=== PATIENT | male | born 1995 | race Caucasian/White ===

== ENCOUNTER 2018-05-10 18:05 | Emergency (ER) | payer SELFPAY ==
[2018-05-10 18:23] VITALS: BP 134/60
--- NOTE | 2018-05-10 19:02 | UC ---
Hand/Wrist HPI - HPI Summary HPI Summary: 22 yo male presents with left 5th finger injury. He tells me that in February 2018 he dislocated this finger at the DIP joint and had it "popped" back in. 2 weeks ago he dislocated this same finger, but at the PIP joint and he popped it back in himself. Today he was playing basketball and another player swatted at the ball, but impacted pt's finger. He had immediate pain at the PIP joint followed by swelling. He thought it was dislocated again, but couldn't get it "popped back in" - prompting his visit to . He denies numbness or tingling. - History Of Current Complaint Chief Complaint: UCUpperExtremity Stated Complaint: LEFT PINKY INJ Time Seen by Provider: 05/10/18 18:59 Hx Obtained From: Patient Onset/Duration: Sudden Onset Severity Initially: Moderate Severity Currently: Mild Pain Intensity: 4 Pain Scale Used: 0-10 Numeric - Allergies/Home Medications Allergies/Adverse Reactions: Allergies Allergy/AdvReac Type Severity Reaction Status Date / Time No Known Allergies Allergy Verified 05/10/18 18:20 Home Medications: Home Medications NK [No Home Medications Reported] 05/10/18 [History Confirmed 05/10/18] PMH/Surg Hx/FS Hx/Imm Hx - Additional Past Medical History Additional PMH: None - Surgical History Surgical History: Yes Surgery Procedure, Year, and Place: Bilateral Flat Feet Repair - Family History Known Family History: Positive: None - Social History Occupation: Student Lives: Dormitory/Roommates Alcohol Use: Weekly Substance Use Type: None Smoking Status (MU): Never Smoked Tobacco Review of Systems Constitutional: Negative Skin: Negative Respiratory: Negative Cardiovascular: Negative Neurovascular: Negative Musculoskeletal: Other: - Pain and swelling at 5th finger PIP Neurological: Negative Psychological: Negative All Other Systems Reviewed And Are Negative: Yes Physical Exam - Summary Physical Exam Summary: GENERAL: NAD. WDWN. No pain distress. SKIN: No rashes, sores, lesions, or open wounds. CHEST: No accessory muscle use. Breathing comfortably and in no distress. CV: Pulses intact radial and ulnar. Cap refill <2seconds MSK: Left 5th finger: PIP with moderate pain and edema. Extension to ~20deg due to edema/pain. Flexion to ~80deg due to edema/pain. No obvious bony deformity. NEURO: Alert. Sensations intact hand and all fingers. PSYCH: Age appropriate behavior. Triage Information Reviewed: Yes Vital Signs: Initial Vital Signs Temp 98.7 F 05/10/18 18:19 Pulse 98 05/10/18 18:19 Resp 18 05/10/18 18:19 BP 134/60 05/10/18 18:19 Pulse Ox 100 05/10/18 18:19 Vital Signs Reviewed: Yes Hand/Wrist Course/Dx - Course Course Of Treatment: XR: No radiologist reading after 1800, therefore wet read by myself is Oblique fracture distal proximal phalanx. This could be subacute as pt had a finger dislocation 2 weeks ago and has had a bump in this same area since that time. He was placed in a pre-made finger splint with the finger in extension. Advised to RICE and f/u with Orthopedics as soon as possible - Differential Dx/Diagnosis Provider Diagnoses: Oblique fracture distal proximal phalanx left 5th finger Discharge - Sign-Out/Discharge Documenting (check all that apply): Patient Departure All imaging exams completed and their final reports reviewed: No - Discharge Plan Condition: Stable Disposition: HOME Patient Education Materials: Finger Fracture (ED) Referrals: No Primary Care Phys,NOPCP [Primary Care Provider] - Additional Instructions: If you develop a fever, shortness of breath, chest pain, new or worsening symptoms - please call your PCP or go to the ED. 1) Wear the finger splint as much as possible 2) Please schedule a follow up appointment with Orthopedics as soon as possible for further evaluation - Billing Disposition and Condition Condition: STABLE Disposition: Home
--- NOTE | 2018-05-11 07:39 | RAD ---
HISTORY: Dislocation COMPARISONS: None VIEWS: 3 , Frontal, lateral, and oblique views of the fifth digit of the right hand FINDINGS: BONE DENSITY: Normal. BONES: There is no displaced fracture. The oblique fracture noted in the pulmonary report of the proximal phalanx is felt to represent a vascular channel. JOINTS: There is no arthropathy. ALIGNMENT: There is no dislocation. SOFT TISSUES: There is soft tissue swelling at the PIP joint. OTHER FINDINGS: None. IMPRESSION: SOFT TISSUE SWELLING. NO ACUTE OSSEOUS INJURY. IF SYMPTOMS PERSIST, RECOMMEND REPEAT IMAGING. R2
--- NOTE | 2018-05-11 13:25 | UC ---
- Progress Note Progress Note: xray report shows no fracture. he is splinted w/ h/o several dislocations. he can continue to wear the splint for support and follow up with ortho for definitive evaluation. Discharge - Sign-Out/Discharge Documenting (check all that apply): Post-Discharge Follow Up All imaging exams completed and their final reports reviewed: Yes - Discharge Plan Condition: Stable Disposition: HOME Patient Education Materials: Finger Fracture (ED) Referrals: No Primary Care Phys,NOPCP [Primary Care Provider] - Additional Instructions: If you develop a fever, shortness of breath, chest pain, new or worsening symptoms - please call your PCP or go to the ED. 1) Wear the finger splint as much as possible 2) Please schedule a follow up appointment with Orthopedics as soon as possible for further evaluation - Billing Disposition and Condition Condition: STABLE Disposition: Home
== END 2018-05-10 19:23 | disposition home or self-care (01) ==
LOC: UCCORT 18:05
DX: S69.82XA Other specified injuries of left wrist, hand and finger(s), initial encounter (principal); W22.8XXA Striking against or struck by other objects, initial encounter; Y92.9 Unspecified place or not applicable
CPT/HCPCS: 73140; 99202; G0463